=== PATIENT | male | born 1945 | race Native Hawaiian/Other Pacific Islander ===

== ENCOUNTER 2018-01-03 16:16 | Emergency (ER) | payer OTHER ==
[~2018-01-03] VITALS: Ht 185.4 cm; Wt 70.8 kg
[2018-01-03 16:15] VITALS: TEMP 98.8
[2018-01-03 16:30] LABS: PLATELET COUNT 224 K/uL (142-355)
[2018-01-03 16:39] LABS: POTASSIUM 4.3 mmol/L (3.6-5.2)
[2018-01-03] MEDS ORDERED: DULO30CA PO (16:41)
[2018-01-03] MEDS ORDERED: DAILY VITE PO (16:41)
[2018-01-03] MEDS ORDERED: NUPLAZID17 MG PO (16:42)
[2018-01-03] MEDS ORDERED: HYDR5TAB9 PO (16:43)
[2018-01-03] MEDS ORDERED: TEARS NATURALE OP (16:43)
[2018-01-03] MEDS ORDERED: SPIRONOLACT25 MG PO (16:44)
[2018-01-03] MEDS ORDERED: VITAMIN B-12500 MCG PO (16:44)
[2018-01-03] MEDS ORDERED: KLOR-CON M2020 MEQ PO (16:45)
[2018-01-03] MEDS ORDERED: [UNRECOGNIZED DRUG - REMARK] PO (16:45)
[2018-01-03] MEDS ORDERED: SINEMET PO (16:46)
[2018-01-03] MEDS ORDERED: ALPR0.2566 PO (16:47)
[2018-01-03] MEDS ORDERED: DIVA125C PO (16:47)
[2018-01-03] MEDS ORDERED: FLUO10CA2 PO (16:49)
[2018-01-03] MEDS ORDERED: KLOR-CON SPRIN10 MEQ PO (16:51)
[2018-01-03 17:17] VITALS: BP 108/60
[2018-01-03] MEDS ORDERED: CLOTRIMAZOLE12 TOP (20:30)
[2018-01-13] MEDS ORDERED: FLUOXETINE20 MG PO (10:16)
[2018-01-13] MEDS ORDERED: THIA100T8 PO (10:16)
[2018-01-13] MEDS ORDERED: CEPH500C20 PO (10:16)
[2018-01-13] MEDS ORDERED: OLAN2.5T2 PO (10:16)
== END 2018-01-03 18:00 | disposition other institution (70) ==
LOC: ED 16:16
DX: R46.89 Other symptoms and signs involving appearance and behavior (principal); Z04.6 Encounter for general psychiatric examination, requested by authority; I95.89 Other hypotension; R60.9 Edema, unspecified; S60.222A Contusion of left hand, initial encounter; S60.221A Contusion of right hand, initial encounter
CPT/HCPCS: 36415; 80053; 83735; 84100; 85027; 93005; 99285